=== PATIENT | male | born 1940 | race Caucasian/White ===

== ENCOUNTER 2017-11-09 16:52 | Inpatient (IN) | payer OTHER, MEDICAID ==
[~2017-11-09] VITALS: Ht 180.3 cm; Wt 68.1 kg
[2017-11-09] MEDS ORDERED: ALPRAZolam 0.5 MG TAB PO PRN (17:45)
[2017-11-09] MEDS ORDERED: NITROGLYCERIN 0.4 MG SL TAB SL PRN (17:45)
[2017-11-09] MEDS ORDERED: MORPHINE SULF INJ 2 MG/ML SYRINGE 1ML IV PRN (17:45)
[2017-11-09] MEDS ORDERED: IPRATROPIUM BROM 0.5 MG/2.5ML INH SOL NEB PRN (17:45)
[2017-11-09 18:25] VITALS: BP 122/62
[2017-11-09 20:00] VITALS: BP 128/78
[2017-11-09 21:17] VITALS: BP 122/62
[2017-11-09 22:00] VITALS: BP 128/78
[2017-11-09] MEDS: GABAPENTIN 300 MG CAP PO SCH (22:15)
[2017-11-09] MEDS: PANTOPRAZOLE 40 MG TAB PO SCH (22:15)
[2017-11-09] MEDS: METOPROLOL TARTRATE 25 MG TAB PO SCH (22:15)
[2017-11-10 05:00] VITALS: BP 121/64
[2017-11-10] MEDS: METOPROLOL TARTRATE 25 MG TAB PO SCH ×4 (06:00→22:00)
[2017-11-10] MEDS: GABAPENTIN 300 MG CAP PO SCH ×4 (06:00→22:58)
[2017-11-10 06:30] LABS: Basophils # (auto) 0.1 uL; Eosinophils # (auto) 0.1 uL; Hemoglobin 10.1 g/dL (13.5-17.5); Lymphocytes # (auto) 1.2 uL
[2017-11-10 06:33] LABS: Basophils % (auto) 0.9 % (0.0-2.0); Eosinophils % (auto) 0.9 % (0.0-7.0); Lymphocytes % (auto) 13.5 % (10.0-50.0); Mean Corpuscular Hemoglobin 26.4 pg (28.0-32.0); Mean Corpuscular Hgb Conc. 31.7 g/dL (32.0-36.0); Mean Corpuscular Volume 83.3 fL (80.0-100.0); Monocytes # (auto) 0.8 uL; Neutrophils # (auto) 6.4 uL; Neutrophils % (auto) 74.7 % (37.0-80.0); Nucleated Red Blood Cells % 0.2 %; Platelet Count (auto) 156 10^3/uL (140-450); Red Blood Cells 3.84 10^6/uL (4.5-5.90); Red Cell Distribution Width 23.5 % (11.8-14.3); White Blood Cell 8.5 10^3/uL (4.4-10.8)
[2017-11-10 06:50] LABS: INR 1.09 (0.9-1.15); Partial Thromboplastin Time 34.1 sec (22.64-33.71); Prothrombin Time 11.9 sec (9.37-12.3)
[2017-11-10 07:06] LABS: BUN/Creatinine Ratio 21.4; Calcium 8.6 mg/dL (8.5-10.1); Magnesium 2.1 mg/dL (1.6-2.6); Potassium 3.8 mmol/L (3.5-5.1)
[2017-11-10 07:30] VITALS: BP 121/64
[2017-11-10 09:00] VITALS: BP 124/74
[2017-11-10] MEDS: DIGOXIN 0.125 MG TAB PO SCH ×2 (09:52→15:26)
[2017-11-10] MEDS: FERROUS SULFATE 325 MG TAB PO SCH ×2 (09:52→15:26)
[2017-11-10] MEDS: FUROSEMIDE 20 MG TAB PO SCH ×2 (09:53→15:25)
[2017-11-10] MEDS: PANTOPRAZOLE 40 MG TAB PO SCH (09:53)
[2017-11-10 13:00] VITALS: BP 124/74
[2017-11-10] MEDS ORDERED: ACETAMINOPHEN 325 MG TAB PO PRN (14:15)
[2017-11-10 17:00] VITALS: BP 116/57
[2017-11-10 22:00] VITALS: BP 124/73
[2017-11-11] MEDS: METOPROLOL TARTRATE 25 MG TAB PO SCH ×4 (02:58→22:25)
[2017-11-11] MEDS: GABAPENTIN 300 MG CAP PO SCH ×3 (02:58→22:16)
[2017-11-11 05:00] VITALS: BP 126/65
[2017-11-11 06:39] VITALS: BP 130/61
[2017-11-11 08:00] VITALS: BP 130/61
[2017-11-11] MEDS: FERROUS SULFATE 325 MG TAB PO SCH (10:06)
[2017-11-11] MEDS: PANTOPRAZOLE 40 MG TAB PO SCH (10:07)
[2017-11-11] MEDS: DIGOXIN 0.125 MG TAB PO SCH (10:07)
[2017-11-11] MEDS: FUROSEMIDE 20 MG TAB PO SCH (10:07)
[2017-11-11 13:00] VITALS: BP 134/64
[2017-11-11 15:58] LABS: Basophils # (auto) 0.1 uL; Eosinophils # (auto) 0.1 uL; Mean Corpuscular Volume 83.8 fL (80.0-100.0); Monocytes # (auto) 0.5 uL; Nucleated Red Blood Cells % 0.1 %; Platelet Count (auto) 201 10^3/uL (140-450)
[2017-11-11 16:00] LABS: Eosinophils % (auto) 0.9 % (0.0-7.0); Hematocrit 32.1 % (41.0-53.0); Lymphocytes # (auto) 0.7 uL; Lymphocytes % (auto) 11.5 % (10.0-50.0); Mean Corpuscular Hemoglobin 26.2 pg (28.0-32.0); Mean Corpuscular Hgb Conc. 31.3 g/dL (32.0-36.0); Monocytes % (auto) 8.5 % (0.0-12.0); Neutrophils % (auto) 78.1 % (37.0-80.0); Red Blood Cells 3.83 10^6/uL (4.5-5.90); White Blood Cell 6.4 10^3/uL (4.4-10.8)
[2017-11-11 16:09] LABS: Red Cell Distribution Width 25.4 % (11.8-14.3)
[2017-11-11 16:15] LABS: BUN/Creatinine Ratio 14.1; Calcium 8.4 mg/dL (8.5-10.1); Magnesium 2.1 mg/dL (1.6-2.6); Potassium 3.5 mmol/L (3.5-5.1)
[2017-11-11 17:00] VITALS: BP 100/45
[2017-11-11] MEDS: HYDROcodone-ACET 7.5/325MG TAB PO PRN (22:41)
[2017-11-12] VITALS (8 sets, daily range): BP systolic 113–147; BP diastolic 48–74
[2017-11-12] MEDS: METOPROLOL TARTRATE 25 MG TAB PO SCH ×3 (05:53→22:15)
[2017-11-12] MEDS: HYDROcodone-ACET 7.5/325MG TAB PO PRN ×4 (05:53→20:56)
[2017-11-12] MEDS: GABAPENTIN 300 MG CAP PO SCH ×3 (05:53→22:15)
[2017-11-12 07:27] LABS: BUN/Creatinine Ratio 22.1; Calcium 8.4 mg/dL (8.5-10.1); Magnesium 2.3 mg/dL (1.6-2.6); Potassium 4.2 mmol/L (3.5-5.1)
[2017-11-12 07:50] LABS: Basophils # (auto) 0.1 uL; Eosinophils # (auto) 0.2 uL; Hemoglobin 10.1 g/dL (13.5-17.5); Monocytes # (auto) 0.7 uL; Nucleated Red Blood Cells % 0.1 %; White Blood Cell 8.3 10^3/uL (4.4-10.8)
[2017-11-12 07:52] LABS: Basophils % (auto) 0.8 % (0.0-2.0); Eosinophils % (auto) 2.3 % (0.0-7.0); Hematocrit 32.5 % (41.0-53.0); Lymphocytes # (auto) 1.2 uL; Lymphocytes % (auto) 14.4 % (10.0-50.0); Mean Corpuscular Hemoglobin 25.9 pg (28.0-32.0); Mean Corpuscular Volume 83.4 fL (80.0-100.0); Neutrophils # (auto) 6.1 uL; Neutrophils % (auto) 73.5 % (37.0-80.0); Platelet Count (auto) 152 10^3/uL (140-450); Red Cell Distribution Width 27.1 % (11.8-14.3)
[2017-11-12] MEDS: DIGOXIN 0.125 MG TAB PO SCH (08:07)
[2017-11-12] MEDS: FERROUS SULFATE 325 MG TAB PO SCH (08:07)
[2017-11-12] MEDS: PANTOPRAZOLE 40 MG TAB PO SCH (08:08)
[2017-11-12] MEDS: FUROSEMIDE 20 MG TAB PO SCH (08:08)
[2017-11-12] MEDS ORDERED: POLYETHYLENE GLYCOL 17 GM PWDR PO PRN (12:45)
[2017-11-12] MEDS: DOCUSATE SOD 100 MG CAP PO SCH ×2 (13:13→22:14)
[2017-11-12] MEDS ORDERED: ASPirin-EC 325mg tab PO SCH (14:45)
[2017-11-12] MEDS: ASPirin-EC 81 mg tab PO SCH (14:47)
[2017-11-12 15:04] LABS: Cholesterol 89 mg/dL (< 200); HDL Cholesterol 37 mg/dL (40-59); LDL Cholesterol 51 mg/dL (< 100); Triglycerides 47 mg/dL (< 150)
[2017-11-12] MEDS: PRO-STAT 64 30ML PO SCH (22:00)
[2017-11-12] MEDS ORDERED: TEMAZEPAM 15 MG CAP PO ONE (22:30)
[2017-11-13 05:11] VITALS: BP 137/65
[2017-11-13] MEDS: GABAPENTIN 300 MG CAP PO SCH ×3 (06:03→22:17)
[2017-11-13] MEDS: METOPROLOL TARTRATE 25 MG TAB PO SCH ×3 (06:03→22:21)
[2017-11-13 06:06] LABS: Basophils # (auto) 0.1 uL; Basophils % (auto) 2.2 % (0.0-2.0); Eosinophils # (auto) 0.2 uL; Eosinophils % (auto) 3.6 % (0.0-7.0); Lymphocytes # (auto) 1.1 uL; Mean Corpuscular Volume 85.4 fL (80.0-100.0); Monocytes # (auto) 0.6 uL; Monocytes % (auto) 9.2 % (0.0-12.0); Neutrophils # (auto) 4.5 uL; Nucleated Red Blood Cells % 0.1 %; Red Blood Cells 3.75 10^6/uL (4.5-5.90); White Blood Cell 6.6 10^3/uL (4.4-10.8)
[2017-11-13 06:09] LABS: Lymphocytes % (auto) 16.3 % (10.0-50.0); Mean Corpuscular Hemoglobin 26.7 pg (28.0-32.0); Mean Corpuscular Hgb Conc. 31.2 g/dL (32.0-36.0); Neutrophils % (auto) 68.7 % (37.0-80.0); Platelet Count (auto) 187 10^3/uL (140-450)
[2017-11-13 06:10] LABS: Red Cell Distribution Width 26.6 % (11.8-14.3)
[2017-11-13 06:34] LABS: BUN/Creatinine Ratio 24.4; Calcium 8.1 mg/dL (8.5-10.1); Potassium 4.1 mmol/L (3.5-5.1)
[2017-11-13 09:00] VITALS: BP 135/67
[2017-11-13] MEDS: DOCUSATE SOD 100 MG CAP PO SCH ×2 (10:54→22:17)
[2017-11-13] MEDS: FUROSEMIDE 20 MG TAB PO SCH (10:55)
[2017-11-13] MEDS: ASCORBIC ACID 500 MG TAB PO SCH (10:55)
[2017-11-13] MEDS: PANTOPRAZOLE 40 MG TAB PO SCH (10:55)
[2017-11-13] MEDS: FERROUS SULFATE 325 MG TAB PO SCH (10:55)
[2017-11-13] MEDS: ASPirin-EC 81 mg tab PO SCH (10:56)
[2017-11-13] MEDS: MULTIPLE VITAMINS W/ MINERALS TAB PO SCH (10:56)
[2017-11-13] MEDS: DIGOXIN 0.125 MG TAB PO SCH (10:56)
[2017-11-13] MEDS: PRO-STAT 64 30ML PO SCH ×2 (10:56→22:17)
[2017-11-13 12:31] VITALS: BP 128/60
[2017-11-13] MEDS: HYDROcodone-ACET 7.5/325MG TAB PO PRN ×2 (13:21→17:53)
[2017-11-13 17:00] VITALS: BP 121/47
[2017-11-13 22:00] VITALS: BP 132/50
[2017-11-14 05:00] VITALS: BP_SYST 107; BP_SYST 130; BP_DIAS 45; BP_DIAS 66
[2017-11-14] MEDS: GABAPENTIN 300 MG CAP PO SCH ×3 (05:39→21:45)
[2017-11-14] MEDS: METOPROLOL TARTRATE 25 MG TAB PO SCH ×3 (06:00→21:45)
[2017-11-14 07:06] LABS: Calcium 8.7 mg/dL (8.5-10.1)
[2017-11-14 07:08] LABS: BUN/Creatinine Ratio 22.8; Basophils # (auto) 0.1 uL; Eosinophils # (auto) 0.2 uL; Hemoglobin 9.8 g/dL (13.5-17.5)
[2017-11-14 07:11] LABS: INR 1.06 (0.9-1.15); Partial Thromboplastin Time 32.7 sec (22.64-33.71); Prothrombin Time 11.6 sec (9.37-12.3)
[2017-11-14 07:18] LABS: Eosinophils % (auto) 2.8 % (0.0-7.0); Hematocrit 31.3 % (41.0-53.0); Lymphocytes % (auto) 14.5 % (10.0-50.0); Mean Corpuscular Hemoglobin 26.8 pg (28.0-32.0); Mean Corpuscular Hgb Conc. 31.2 g/dL (32.0-36.0); Mean Corpuscular Volume 85.9 fL (80.0-100.0); Monocytes # (auto) 0.6 uL; Monocytes % (auto) 9.3 % (0.0-12.0); Neutrophils # (auto) 4.7 uL; Neutrophils % (auto) 71.4 % (37.0-80.0); Red Blood Cells 3.64 10^6/uL (4.5-5.90); White Blood Cell 6.6 10^3/uL (4.4-10.8)
[2017-11-14 07:29] LABS: Platelet Count (auto) 91 10^3/uL (140-450); Red Cell Distribution Width 26.7 % (11.8-14.3)
[2017-11-14 08:00] VITALS: BP 133/43
[2017-11-14 09:00] VITALS: BP 133/54
[2017-11-14] MEDS ORDERED: LIDOCAINE 2%HCL (LOCAL ANESTH.) INJ 20ML MDV ONE (09:27)
[2017-11-14] MEDS ORDERED: IODIXANOL 320MG/ML 100ML BTL IV ONE (09:27)
[2017-11-14] MEDS: MULTIPLE VITAMINS W/ MINERALS TAB PO SCH (10:00)
[2017-11-14] MEDS: DOCUSATE SOD 100 MG CAP PO SCH ×2 (10:00→21:44)
[2017-11-14] MEDS: DIGOXIN 0.125 MG TAB PO SCH (10:00)
[2017-11-14] MEDS: PRO-STAT 64 30ML PO SCH ×2 (10:00→21:45)
[2017-11-14] MEDS: FUROSEMIDE 20 MG TAB PO SCH (10:00)
[2017-11-14] MEDS: ASPirin-EC 81 mg tab PO SCH (10:00)
[2017-11-14] MEDS: FERROUS SULFATE 325 MG TAB PO SCH (10:00)
[2017-11-14] MEDS: ASCORBIC ACID 500 MG TAB PO SCH (10:00)
[2017-11-14] MEDS: PANTOPRAZOLE 40 MG TAB PO SCH (10:00)
[2017-11-14] MEDS ORDERED: MIDAZOLAM HCL 1MG/1ML-2 ML VIAL ONE (10:18)
[2017-11-14] MEDS ORDERED: fentaNYL CITRATE 100 MCG/2 ML VL ONE (10:18)
[2017-11-14] MEDS ORDERED: ANGIOMAX 250 MG VIAL IV ONE (10:18)
[2017-11-14] MEDS ORDERED: SODIUM CHL 0.9% 0 ML ONE (10:18)
[2017-11-14] MEDS ORDERED: VERAPAMIL 2.5MG/ML INJ 2ML VIAL IV ONE (10:24)
[2017-11-14] MEDS ORDERED: HEPARIN 1,000 UNITS/ml 1ML VIAL ONE (10:36)
[2017-11-14 16:41] VITALS: BP 130/59
[2017-11-15 04:39] VITALS: BP 136/59
[2017-11-15 05:56] LABS: Basophils # (auto) 0.1 uL; Basophils % (auto) 1.5 % (0.0-2.0); Eosinophils # (auto) 0.1 uL; Eosinophils % (auto) 1.9 % (0.0-7.0); Hematocrit 30.3 % (41.0-53.0); Hemoglobin 9.7 g/dL (13.5-17.5); Lymphocytes # (auto) 0.8 uL; Mean Corpuscular Volume 84.3 fL (80.0-100.0); Monocytes # (auto) 0.6 uL; Monocytes % (auto) 10.2 % (0.0-12.0); Neutrophils # (auto) 4.3 uL; Neutrophils % (auto) 72.4 % (37.0-80.0); Platelet Count (auto) 306 10^3/uL (140-450)
[2017-11-15] MEDS: METOPROLOL TARTRATE 25 MG TAB PO SCH ×3 (06:03→21:05)
[2017-11-15] MEDS: GABAPENTIN 300 MG CAP PO SCH ×3 (06:03→21:05)
[2017-11-15 06:09] LABS: Red Cell Distribution Width 26.8 % (11.8-14.3)
[2017-11-15 06:13] LABS: INR 1.1 (0.9-1.15); Partial Thromboplastin Time 33.1 sec (22.64-33.71)
[2017-11-15 06:14] LABS: BUN/Creatinine Ratio 30.3; Calcium 8.7 mg/dL (8.5-10.1); Magnesium 2.4 mg/dL (1.6-2.6); Potassium 4.5 mmol/L (3.5-5.1)
[2017-11-15 07:08] VITALS: BP 135/71
[2017-11-15] MEDS: DOCUSATE SOD 100 MG CAP PO SCH ×2 (10:00→21:01)
[2017-11-15] MEDS: FERROUS SULFATE 325 MG TAB PO SCH (10:28)
[2017-11-15] MEDS: ASPirin-EC 81 mg tab PO SCH (10:29)
[2017-11-15] MEDS: DIGOXIN 0.125 MG TAB PO SCH (10:30)
[2017-11-15] MEDS: FUROSEMIDE 20 MG TAB PO SCH (10:30)
[2017-11-15] MEDS: ASCORBIC ACID 500 MG TAB PO SCH (10:30)
[2017-11-15] MEDS: PANTOPRAZOLE 40 MG TAB PO SCH (10:30)
[2017-11-15] MEDS: MULTIPLE VITAMINS W/ MINERALS TAB PO SCH (10:30)
[2017-11-15] MEDS: PRO-STAT 64 30ML PO SCH ×2 (10:34→21:05)
[2017-11-15 13:00] VITALS: BP 131/75
[2017-11-15] MEDS ORDERED: VANCOMYCIN PER PHARMACY 0 MG IV SCH (14:15)
[2017-11-15 15:00] VITALS: BP 116/64
[2017-11-15] MEDS: PIPERACILLIN-TAZOB 3.375GM 50 ML IV SCH ×2 (16:17→20:45)
[2017-11-15] MEDS: HYDROcodone-ACET 7.5/325MG TAB PO PRN ×2 (16:21→20:45)
[2017-11-15] MEDS: VANCOMYCIN 1GM/250ML 250 ML IV SCH (18:25)
[2017-11-15] MEDS: HEPARIN SODIUM (PORCINE) 5000 UNITS/ML 1ML VIAL SC SCH (21:01)
[2017-11-15] MEDS: ALPRAZolam 0.5 MG TAB PO PRN (21:06)
[2017-11-15 22:00] VITALS: BP 133/66
[2017-11-16] MEDS: HYDROcodone-ACET 7.5/325MG TAB PO PRN ×3 (00:58→21:30)
[2017-11-16] MEDS: PIPERACILLIN-TAZOB 3.375GM 50 ML IV SCH ×4 (02:20→21:29)
[2017-11-16] MEDS: VANCOMYCIN 1GM/250ML 250 ML IV SCH ×2 (04:32→16:33)
[2017-11-16 05:52] VITALS: BP 138/60
[2017-11-16 06:22] LABS: Basophils # (auto) 0.1 uL; Eosinophils # (auto) 0.2 uL; Hemoglobin 9.9 g/dL (13.5-17.5); Mean Corpuscular Volume 85.8 fL (80.0-100.0); Monocytes # (auto) 0.6 uL; Neutrophils # (auto) 3.5 uL; White Blood Cell 5.4 10^3/uL (4.4-10.8)
[2017-11-16 06:25] LABS: Basophils % (auto) 2.2 % (0.0-2.0); Eosinophils % (auto) 3.4 % (0.0-7.0); Hematocrit 31.4 % (41.0-53.0); Lymphocytes % (auto) 18.9 % (10.0-50.0); Mean Corpuscular Hgb Conc. 31.5 g/dL (32.0-36.0); Monocytes % (auto) 10.7 % (0.0-12.0); Neutrophils % (auto) 64.8 % (37.0-80.0); Platelet Count (auto) 224 10^3/uL (140-450); Red Blood Cells 3.66 10^6/uL (4.5-5.90)
[2017-11-16 06:32] LABS: BUN/Creatinine Ratio 29.5; Calcium 8.2 mg/dL (8.5-10.1); Magnesium 2.5 mg/dL (1.6-2.6); Potassium 4.5 mmol/L (3.5-5.1)
[2017-11-16] MEDS: METOPROLOL TARTRATE 25 MG TAB PO SCH ×3 (06:37→21:39)
[2017-11-16] MEDS: GABAPENTIN 300 MG CAP PO SCH ×3 (06:37→21:30)
[2017-11-16 06:45] LABS: Red Cell Distribution Width 27.6 % (11.8-14.3)
[2017-11-16 09:00] VITALS: BP 120/68
[2017-11-16] MEDS: DOCUSATE SOD 100 MG CAP PO SCH ×2 (09:43→21:29)
[2017-11-16] MEDS: PANTOPRAZOLE 40 MG TAB PO SCH (09:44)
[2017-11-16] MEDS: ASPirin-EC 81 mg tab PO SCH (09:44)
[2017-11-16] MEDS: ASCORBIC ACID 500 MG TAB PO SCH (09:44)
[2017-11-16] MEDS: DIGOXIN 0.125 MG TAB PO SCH (09:44)
[2017-11-16] MEDS: FERROUS SULFATE 325 MG TAB PO SCH (09:44)
[2017-11-16] MEDS: MULTIPLE VITAMINS W/ MINERALS TAB PO SCH (09:44)
[2017-11-16] MEDS: FUROSEMIDE 20 MG TAB PO SCH (09:44)
[2017-11-16] MEDS: PRO-STAT 64 30ML PO SCH ×2 (09:46→21:39)
[2017-11-16] MEDS: HEPARIN SODIUM (PORCINE) 5000 UNITS/ML 1ML VIAL SC SCH (09:46)
[2017-11-16 12:57] LABS: Basophils # (auto) 0.2 uL; Eosinophils # (auto) 0.2 uL; Hemoglobin 9.9 g/dL (13.5-17.5); Lymphocytes # (auto) 0.9 uL; Nucleated Red Blood Cells % 0.1 %
[2017-11-16 12:59] LABS: Basophils % (auto) 2.5 % (0.0-2.0); Eosinophils % (auto) 2.8 % (0.0-7.0); Hematocrit 31.7 % (41.0-53.0); Lymphocytes % (auto) 14.4 % (10.0-50.0); Mean Corpuscular Hemoglobin 26.6 pg (28.0-32.0); Mean Corpuscular Hgb Conc. 31.2 g/dL (32.0-36.0); Mean Corpuscular Volume 85.5 fL (80.0-100.0); Monocytes # (auto) 0.7 uL; Monocytes % (auto) 10.5 % (0.0-12.0); Neutrophils # (auto) 4.5 uL; Neutrophils % (auto) 69.8 % (37.0-80.0); Platelet Count (auto) 415 10^3/uL (140-450); Red Blood Cells 3.71 10^6/uL (4.5-5.90); White Blood Cell 6.4 10^3/uL (4.4-10.8)
[2017-11-16 13:00] VITALS: BP 114/49
[2017-11-16 13:17] LABS: Red Cell Distribution Width 27.7 % (11.8-14.3)
[2017-11-16 13:21] LABS: INR 1.06 (0.9-1.15); Partial Thromboplastin Time 34.3 sec (22.64-33.71); Prothrombin Time 11.6 sec (9.37-12.3)
[2017-11-16] MEDS ORDERED: HEPARIN SODIUM (PORCINE) 5000 UNITS/ML 1ML VIAL IV ONE (15:15)
[2017-11-16] MEDS: HEPARIN DRIP/D5W 100UNITS/ML 250 ML IV SCH (16:37)
[2017-11-16 17:00] VITALS: BP 110/56
[2017-11-16] MEDS: ATORVASTATIN 20 MG TAB PO SCH (21:30)
[2017-11-16 22:00] VITALS: BP 117/69
[2017-11-16 22:29] LABS: INR 1.07 (0.9-1.15); Partial Thromboplastin Time 39.5 sec (22.64-33.71); Prothrombin Time 11.7 sec (9.37-12.3)
[2017-11-16] MEDS: ZOLPIDEM TARTRATE 5 MG TAB PO PRN (23:18)
[2017-11-17] MEDS: PIPERACILLIN-TAZOB 3.375GM 50 ML IV SCH ×4 (02:32→21:28)
[2017-11-17 04:40] LABS: Eosinophils # (auto) 0.2 uL; Hemoglobin 9.4 g/dL (13.5-17.5); Monocytes # (auto) 0.6 uL
[2017-11-17 04:42] LABS: Basophils # (auto) 0.2 uL; Basophils % (auto) 3.8 % (0.0-2.0); Eosinophils % (auto) 3.4 % (0.0-7.0); Hematocrit 30.6 % (41.0-53.0); Lymphocytes % (auto) 18.4 % (10.0-50.0); Mean Corpuscular Hemoglobin 26.5 pg (28.0-32.0); Mean Corpuscular Hgb Conc. 30.6 g/dL (32.0-36.0); Mean Corpuscular Volume 86.7 fL (80.0-100.0); Monocytes % (auto) 12.4 % (0.0-12.0); Neutrophils # (auto) 3.2 uL; Platelet Count (auto) 299 10^3/uL (140-450); Red Blood Cells 3.53 10^6/uL (4.5-5.90); White Blood Cell 5.2 10^3/uL (4.4-10.8)
[2017-11-17 04:46] LABS: Red Cell Distribution Width 27.3 % (11.8-14.3)
[2017-11-17 04:55] LABS: INR 1.09 (0.9-1.15); Partial Thromboplastin Time 56.9 sec (22.64-33.71); Prothrombin Time 11.9 sec (9.37-12.3)
[2017-11-17 04:57] LABS: Albumin 2.2 g/dL (3.4-5.0); BUN/Creatinine Ratio 24.4; Calcium 8.5 mg/dL (8.5-10.1); Potassium 4.5 mmol/L (3.5-5.1)
[2017-11-17 05:00] VITALS: BP 131/57
[2017-11-17 05:00] LABS: Bilirubin, Total 0.7 mg/dL (0.2-1.0); Total Protein 6.3 g/dL (6.4-8.2)
[2017-11-17] MEDS: VANCOMYCIN 1GM/250ML 250 ML IV SCH (05:06)
[2017-11-17] MEDS: METOPROLOL TARTRATE 25 MG TAB PO SCH ×3 (06:39→21:29)
[2017-11-17] MEDS: GABAPENTIN 300 MG CAP PO SCH ×3 (06:40→21:28)
[2017-11-17 07:56] VITALS: BP 142/63
[2017-11-17 11:15] LABS: INR 1.06 (0.9-1.15); Partial Thromboplastin Time 36.6 sec (22.64-33.71); Prothrombin Time 11.6 sec (9.37-12.3)
[2017-11-17] MEDS: DOCUSATE SOD 100 MG CAP PO SCH ×2 (12:56→21:28)
[2017-11-17] MEDS: ASPirin-EC 81 mg tab PO SCH (12:56)
[2017-11-17] MEDS: FERROUS SULFATE 325 MG TAB PO SCH (12:56)
[2017-11-17] MEDS: DIGOXIN 0.125 MG TAB PO SCH (12:56)
[2017-11-17] MEDS: FUROSEMIDE 20 MG TAB PO SCH (12:57)
[2017-11-17] MEDS: MULTIPLE VITAMINS W/ MINERALS TAB PO SCH (12:57)
[2017-11-17] MEDS: PRO-STAT 64 30ML PO SCH ×2 (12:57→22:44)
[2017-11-17] MEDS: PANTOPRAZOLE 40 MG TAB PO SCH (12:57)
[2017-11-17] MEDS: ASCORBIC ACID 500 MG TAB PO SCH (12:57)
[2017-11-17 14:07] VITALS: BP 135/60
[2017-11-17] MEDS: HEPARIN DRIP/D5W 100UNITS/ML 250 ML IV SCH (15:01)
[2017-11-17 15:42] LABS: INR 1.1 (0.9-1.15); Partial Thromboplastin Time 42.1 sec (22.64-33.71)
[2017-11-17 17:28] VITALS: BP 114/48
[2017-11-17] MEDS: ATORVASTATIN 20 MG TAB PO SCH (21:29)
[2017-11-17 22:00] VITALS: BP 108/56
[2017-11-17] MEDS: ZOLPIDEM TARTRATE 5 MG TAB PO PRN (22:00)
[2017-11-17 22:45] VITALS: BP 105/50
[2017-11-17] MEDS ORDERED: VANCOMYCIN 1GM/250ML 250 ML IV SCH (23:00)
[2017-11-18] MEDS: PIPERACILLIN-TAZOB 3.375GM 50 ML IV SCH ×4 (03:15→21:24)
[2017-11-18 05:00] VITALS: BP 146/70
[2017-11-18] MEDS: GABAPENTIN 300 MG CAP PO SCH ×3 (05:21→21:54)
[2017-11-18] MEDS: METOPROLOL TARTRATE 25 MG TAB PO SCH ×4 (05:34→21:54)
[2017-11-18 07:28] LABS: Albumin 2.1 g/dL (3.4-5.0); BUN/Creatinine Ratio 20.5; Bilirubin, Total 0.7 mg/dL (0.2-1.0); Calcium 8.2 mg/dL (8.5-10.1); Potassium 4.2 mmol/L (3.5-5.1); Total Protein 6.4 g/dL (6.4-8.2)
[2017-11-18] MEDS ORDERED: PAPAVERINE HCL 60 MG/2 ML 2ML VIAL ONE (07:35)
[2017-11-18] MEDS ORDERED: POVIDONE IODINE 10 % TOPICAL OINT 30GM TOP ONE (07:35)
[2017-11-18] MEDS ORDERED: ceFAZolin 1GM VL ONE ×2 (07:35→11:43)
[2017-11-18] MEDS ORDERED: GELATIN 1 SPONGE SIZE 100 TOP ONE (07:35)
[2017-11-18] MEDS ORDERED: HEPARIN 1,000 UNITS/ml 1ML VIAL ONE (07:35)
[2017-11-18] MEDS ORDERED: HEPARIN SODIUM (PORCINE) 5000 UNITS/ML 1ML VIAL ONE ×3 (07:35→11:35)
[2017-11-18] MEDS ORDERED: THROMBIN (BOVINE) 5000 UNIT SOL VIAL ONE ×2 (07:36→08:38)
[2017-11-18 08:00] VITALS: BP 143/73
[2017-11-18] MEDS ORDERED: fentaNYL CITRATE 5 ML ONE (08:56)
[2017-11-18] MEDS ORDERED: fentaNYL CITRATE 100 MCG/2 ML VL ONE ×2 (08:56→18:17)
[2017-11-18] MEDS ORDERED: MEPERIDINE HCL (50 MG/ML) 1 ML VIAL ONE (08:57)
[2017-11-18] MEDS ORDERED: DEXAMETHASONE SOD PHOS 10MG/1ML VIAL INJ ONE (09:01)
[2017-11-18] MEDS ORDERED: ETOMIDATE (2MG/ML) 20ML VIAL IV ONE (09:01)
[2017-11-18] MEDS: ASPirin-EC 81 mg tab PO SCH (10:00)
[2017-11-18] MEDS: ASCORBIC ACID 500 MG TAB PO SCH (10:00)
[2017-11-18] MEDS: MULTIPLE VITAMINS W/ MINERALS TAB PO SCH (10:00)
[2017-11-18] MEDS: DOCUSATE SOD 100 MG CAP PO SCH ×3 (10:00→22:00)
[2017-11-18] MEDS: DIGOXIN 0.125 MG TAB PO SCH (10:00)
[2017-11-18] MEDS: PRO-STAT 64 30ML PO SCH ×2 (10:00→22:00)
[2017-11-18] MEDS: PANTOPRAZOLE 40 MG TAB PO SCH (10:00)
[2017-11-18] MEDS: FUROSEMIDE 20 MG TAB PO SCH (10:00)
[2017-11-18] MEDS: FERROUS SULFATE 325 MG TAB PO SCH (10:00)
[2017-11-18] MEDS ORDERED: ceFAZolin 1GM/50ML 50 ML IV ONE (10:11)
[2017-11-18] MEDS ORDERED: MIDAZOLAM HCL 1MG/1ML-2 ML VIAL ONE ×3 (10:20→18:17)
[2017-11-18] MEDS ORDERED: MORPHINE SULFATE 4 MG/ML SYR/VIAL IV PRN (11:15)
[2017-11-18] MEDS ORDERED: KETOROLAC TROMETH 30 MG/ML 1ML VIAL IV ONE (11:15)
[2017-11-18] MEDS ORDERED: LABETALOL HCL 5 MG/ML 4ML SYRINGE IV PRN (11:15)
[2017-11-18] MEDS ORDERED: ePHEDrine SULFATE 50 MG/ML AMP IV PRN (11:15)
[2017-11-18] MEDS ORDERED: ONDANSETRON HCL 4 MG/2 ML VIAL IV ONE (11:15)
[2017-11-18] MEDS ORDERED: MIDAZOLAM HCL 1MG/1ML-2 ML VIAL IV PRN (11:15)
[2017-11-18] MEDS ORDERED: HYDROmorphone HCL 2 MG/ML VL IV PRN (11:15)
[2017-11-18] MEDS ORDERED: MORPHINE SULFATE 4 MG/ML SYR/VIAL IV ONE (12:00)
[2017-11-18] MEDS ORDERED: PROTAMINE SULFATE 10 MG/ML 5ML VIAL IV ONE (13:08)
[2017-11-18] MEDS ORDERED: HYDROcodone-ACET 5/325MG TAB PO PRN (15:30)
[2017-11-18] MEDS ORDERED: LIDOCAINE 2% JELLY 11ml (GLYDO) ONE (17:22)
[2017-11-18] MEDS ORDERED: PROPOFOL 10 MG/ML 20 ML IV ONE (18:22)
[2017-11-18 20:00] VITALS: BP 129/48
[2017-11-18 20:11] VITALS: BP 104/50
[2017-11-18] MEDS: VANCOMYCIN 1GM/250ML 250 ML IV SCH (21:54)
[2017-11-18] MEDS: ATORVASTATIN 20 MG TAB PO SCH (21:54)
[2017-11-18] MEDS: ZOLPIDEM TARTRATE 5 MG TAB PO PRN (23:13)
[2017-11-19] VITALS (7 sets, daily range): BP systolic 103–127; BP diastolic 51–71
[2017-11-19] MEDS: PIPERACILLIN-TAZOB 3.375GM 50 ML IV SCH ×4 (02:37→21:27)
[2017-11-19] MEDS: GABAPENTIN 300 MG CAP PO SCH ×3 (05:57→22:09)
[2017-11-19] MEDS: METOPROLOL TARTRATE 25 MG TAB PO SCH ×3 (05:58→22:10)
[2017-11-19 06:13] LABS: BUN/Creatinine Ratio 17.4; Bilirubin, Total 0.7 mg/dL (0.2-1.0); Calcium 8.1 mg/dL (8.5-10.1); Potassium 4.6 mmol/L (3.5-5.1); Total Protein 5.8 g/dL (6.4-8.2)
[2017-11-19] MEDS: DOCUSATE SOD 100 MG CAP PO SCH ×2 (10:00→22:00)
[2017-11-19] MEDS: DIGOXIN 0.125 MG TAB PO SCH (10:25)
[2017-11-19] MEDS: ASPirin-EC 81 mg tab PO SCH (10:25)
[2017-11-19] MEDS: FERROUS SULFATE 325 MG TAB PO SCH (10:25)
[2017-11-19] MEDS: MULTIPLE VITAMINS W/ MINERALS TAB PO SCH (10:26)
[2017-11-19] MEDS: PRO-STAT 64 30ML PO SCH ×2 (10:26→22:00)
[2017-11-19] MEDS: ASCORBIC ACID 500 MG TAB PO SCH (10:26)
[2017-11-19] MEDS: PANTOPRAZOLE 40 MG TAB PO SCH (10:26)
[2017-11-19] MEDS: FUROSEMIDE 20 MG TAB PO SCH (10:26)
[2017-11-19] MEDS: MORPHINE SULFATE 4 MG/ML SYR/VIAL IV PRN ×2 (12:28→22:10)
[2017-11-19] MEDS: VANCOMYCIN 1GM/250ML 250 ML IV SCH (17:44)
[2017-11-19] MEDS ORDERED: MORPHINE SULF INJ 2 MG/ML SYRINGE 1ML IV PRN (18:00)
[2017-11-19] MEDS ORDERED: NITROGLYCERIN 0.4 MG SL TAB SL PRN (18:00)
[2017-11-19] MEDS: ATORVASTATIN 20 MG TAB PO SCH (22:10)
[2017-11-20] MEDS: ALPRAZolam 0.5 MG TAB PO PRN (00:20)
[2017-11-20] MEDS: PIPERACILLIN-TAZOB 3.375GM 50 ML IV SCH ×4 (02:45→21:00)
[2017-11-20 03:55] VITALS: BP 126/62
[2017-11-20 05:48] LABS: Basophils # (auto) 0.1 uL; Basophils % (auto) 1.3 % (0.0-2.0); Eosinophils # (auto) 0.1 uL; Eosinophils % (auto) 0.8 % (0.0-7.0); Hematocrit 27.9 % (41.0-53.0); Hemoglobin 8.7 g/dL (13.5-17.5); Lymphocytes # (auto) 1.3 uL; Lymphocytes % (auto) 13.1 % (10.0-50.0); Mean Corpuscular Hemoglobin 27.3 pg (28.0-32.0); Mean Corpuscular Hgb Conc. 31.2 g/dL (32.0-36.0); Mean Corpuscular Volume 87.6 fL (80.0-100.0); Monocytes # (auto) 1.1 uL; Neutrophils # (auto) 7.3 uL; Neutrophils % (auto) 73.8 % (37.0-80.0); Platelet Count (auto) 345 10^3/uL (140-450); Red Blood Cells 3.18 10^6/uL (4.5-5.90); White Blood Cell 9.8 10^3/uL (4.4-10.8)
[2017-11-20 05:54] LABS: BUN/Creatinine Ratio 22.1; Calcium 8.3 mg/dL (8.5-10.1); Magnesium 2.4 mg/dL (1.6-2.6); Potassium 4.9 mmol/L (3.5-5.1)
[2017-11-20 06:03] LABS: Red Cell Distribution Width 27.9 % (11.8-14.3)
[2017-11-20] MEDS: GABAPENTIN 300 MG CAP PO SCH ×3 (06:15→21:59)
[2017-11-20] MEDS: METOPROLOL TARTRATE 25 MG TAB PO SCH ×3 (06:17→21:59)
[2017-11-20] MEDS: MULTIPLE VITAMINS W/ MINERALS TAB PO SCH (09:55)
[2017-11-20] MEDS: PANTOPRAZOLE 40 MG TAB PO SCH (09:55)
[2017-11-20] MEDS: DIGOXIN 0.125 MG TAB PO SCH (09:55)
[2017-11-20] MEDS: FERROUS SULFATE 325 MG TAB PO SCH (09:56)
[2017-11-20] MEDS: ASPirin-EC 81 mg tab PO SCH (09:56)
[2017-11-20] MEDS: PRO-STAT 64 30ML PO SCH ×2 (09:56→22:00)
[2017-11-20] MEDS: FUROSEMIDE 20 MG TAB PO SCH (09:56)
[2017-11-20] MEDS: ASCORBIC ACID 500 MG TAB PO SCH (09:56)
[2017-11-20] MEDS: DOCUSATE SOD 100 MG CAP PO SCH ×2 (09:56→21:58)
[2017-11-20 11:56] VITALS: BP 126/66
[2017-11-20] MEDS: VANCOMYCIN 1GM/250ML 250 ML IV SCH (13:25)
[2017-11-20 15:59] VITALS: BP 109/60
[2017-11-20] MEDS: TAMSULOSIN HYDROCHLORIDE 0.4 MG CAP PO SCH (17:01)
[2017-11-20] MEDS: FINASTERIDE 5 MG TAB PO SCH (17:01)
[2017-11-20] MEDS: ALBUTEROL SULF 2.5 MG/0.5ML(0.5%) NEB SOLN NEB SCH (19:12)
[2017-11-20] MEDS: IPRATROPIUM BROM 0.5 MG/2.5ML INH SOL NEB SCH (19:12)
[2017-11-20 20:00] VITALS: BP 111/51
[2017-11-20] MEDS: ATORVASTATIN 20 MG TAB PO SCH (21:58)
[2017-11-21] MEDS: ALBUTEROL SULF 2.5 MG/0.5ML(0.5%) NEB SOLN NEB SCH ×4 (00:18→19:13)
[2017-11-21] MEDS: IPRATROPIUM BROM 0.5 MG/2.5ML INH SOL NEB SCH ×4 (00:18→19:13)
[2017-11-21 02:00] VITALS: BP 111/51
[2017-11-21] MEDS: PIPERACILLIN-TAZOB 3.375GM 50 ML IV SCH ×4 (03:00→22:43)
[2017-11-21 04:00] VITALS: BP_DIAS 72
[2017-11-21] MEDS: VANCOMYCIN 1GM/250ML 250 ML IV SCH (06:10)
[2017-11-21] MEDS: METOPROLOL TARTRATE 25 MG TAB PO SCH ×3 (06:10→22:44)
[2017-11-21] MEDS: GABAPENTIN 300 MG CAP PO SCH ×3 (06:11→22:44)
[2017-11-21 08:00] VITALS: BP 129/72
[2017-11-21] MEDS: PANTOPRAZOLE 40 MG TAB PO SCH (10:06)
[2017-11-21] MEDS: FUROSEMIDE 20 MG TAB PO SCH (10:07)
[2017-11-21] MEDS: FINASTERIDE 5 MG TAB PO SCH (10:07)
[2017-11-21] MEDS: FERROUS SULFATE 325 MG TAB PO SCH (10:07)
[2017-11-21] MEDS: MULTIPLE VITAMINS W/ MINERALS TAB PO SCH (10:07)
[2017-11-21] MEDS: ASCORBIC ACID 500 MG TAB PO SCH (10:07)
[2017-11-21] MEDS: ASPirin-EC 81 mg tab PO SCH (10:08)
[2017-11-21] MEDS: DOCUSATE SOD 100 MG CAP PO SCH ×2 (10:08→22:43)
[2017-11-21] MEDS: DIGOXIN 0.125 MG TAB PO SCH (10:08)
[2017-11-21] MEDS: PRO-STAT 64 30ML PO SCH ×2 (10:09→22:00)
[2017-11-21 11:55] VITALS: BP 148/65
[2017-11-21 12:42] LABS: BUN/Creatinine Ratio 18.1; Calcium 8.5 mg/dL (8.5-10.1)
[2017-11-21 13:28] LABS: INR 1.09 (0.9-1.15); Partial Thromboplastin Time 32.9 sec (22.64-33.71); Prothrombin Time 11.9 sec (9.37-12.3)
[2017-11-21] MEDS ORDERED: LIDOCAINE 1% HCL (LOCAL ANESTH.) INJ 20ML MDV ONE (14:45)
[2017-11-21 15:58] VITALS: BP 138/70
[2017-11-21] MEDS: TAMSULOSIN HYDROCHLORIDE 0.4 MG CAP PO SCH (18:22)
[2017-11-21 20:00] VITALS: BP 129/59
[2017-11-21] MEDS: ATORVASTATIN 20 MG TAB PO SCH (22:43)
[2017-11-22] VITALS (10 sets, daily range): BP systolic 115–152; BP diastolic 52–75
[2017-11-22] MEDS: IPRATROPIUM BROM 0.5 MG/2.5ML INH SOL NEB SCH ×4 (00:37→18:00)
[2017-11-22] MEDS: ALBUTEROL SULF 2.5 MG/0.5ML(0.5%) NEB SOLN NEB SCH ×4 (00:37→18:00)
[2017-11-22] MEDS: VANCOMYCIN 1GM/250ML 250 ML IV SCH ×2 (00:57→18:00)
[2017-11-22] MEDS: PIPERACILLIN-TAZOB 3.375GM 50 ML IV SCH ×3 (03:20→15:00)
[2017-11-22] MEDS: GABAPENTIN 300 MG CAP PO SCH ×2 (05:38→15:50)
[2017-11-22] MEDS: METOPROLOL TARTRATE 25 MG TAB PO SCH ×2 (05:38→15:49)
[2017-11-22 06:16] LABS: Basophils # (auto) 0.2 uL; Basophils % (auto) 2.1 % (0.0-2.0); Eosinophils # (auto) 0.2 uL; Eosinophils % (auto) 1.8 % (0.0-7.0); Lymphocytes % (auto) 12.3 % (10.0-50.0); Mean Corpuscular Hemoglobin 27.7 pg (28.0-32.0); Mean Corpuscular Hgb Conc. 32.1 g/dL (32.0-36.0); Mean Corpuscular Volume 86.5 fL (80.0-100.0); Monocytes # (auto) 0.6 uL; Monocytes % (auto) 7.4 % (0.0-12.0); Neutrophils # (auto) 6.4 uL; Neutrophils % (auto) 76.4 % (37.0-80.0); Platelet Count (auto) 340 10^3/uL (140-450); White Blood Cell 8.4 10^3/uL (4.4-10.8)
[2017-11-22 06:23] LABS: Red Cell Distribution Width 28.1 % (11.8-14.3)
[2017-11-22 06:40] LABS: Albumin 1.9 g/dL (3.4-5.0); BUN/Creatinine Ratio 21.1; Bilirubin, Total 0.7 mg/dL (0.2-1.0); Calcium 8.2 mg/dL (8.5-10.1); Magnesium 2.3 mg/dL (1.6-2.6); Potassium 3.9 mmol/L (3.5-5.1); Total Protein 5.7 g/dL (6.4-8.2)
[2017-11-22] MEDS: PRO-STAT 64 30ML PO SCH (10:00)
[2017-11-22] MEDS ORDERED: LEVOFLOXACIN 500 MG TAB PO ONE (11:00)
[2017-11-22] MEDS: DOCUSATE SOD 100 MG CAP PO SCH (11:14)
[2017-11-22] MEDS: FERROUS SULFATE 325 MG TAB PO SCH (11:14)
[2017-11-22] MEDS: ASPirin-EC 81 mg tab PO SCH (11:15)
[2017-11-22] MEDS: DIGOXIN 0.125 MG TAB PO SCH (11:16)
[2017-11-22] MEDS: FUROSEMIDE 20 MG TAB PO SCH (11:16)
[2017-11-22] MEDS: PANTOPRAZOLE 40 MG TAB PO SCH (11:17)
[2017-11-22] MEDS: MULTIPLE VITAMINS W/ MINERALS TAB PO SCH (11:17)
[2017-11-22] MEDS: FINASTERIDE 5 MG TAB PO SCH (11:17)
[2017-11-22] MEDS: ASCORBIC ACID 500 MG TAB PO SCH (11:18)
[2017-11-22] MEDS: TAMSULOSIN HYDROCHLORIDE 0.4 MG CAP PO SCH (18:00)
== END 2017-11-22 19:00 | DRG 252 ==
LOC: TELE-WESTW 16:52 → DOU IN ICU 11-18 19:31 → TELE-WESTW 11-21 18:46
PROVIDERS: ADMIT Internal Medicine; ATTEND Internal Medicine
PROC: 4A023N7 Measurement of Cardiac Sampling and Pressure, Left Heart, Percutaneous Approach (ICD-10-PCS; principal; 2017-11-14)
PROC: B2111ZZ Fluoroscopy of Multiple Coronary Arteries using Low Osmolar Contrast (ICD-10-PCS; 2017-11-14)
PROC: 041L0JL Bypass Left Femoral Artery to Popliteal Artery with Synthetic Substitute, Open Approach (ICD-10-PCS; 2017-11-18)
PROC: 04CL0ZZ Extirpation of Matter from Left Femoral Artery, Open Approach (ICD-10-PCS; 2017-11-18)
PROC: 04UL0JZ Supplement Left Femoral Artery with Synthetic Substitute, Open Approach (ICD-10-PCS; 2017-11-18)
PROC: 0W9B3ZZ Drainage of Left Pleural Cavity, Percutaneous Approach (ICD-10-PCS; 2017-11-21)
PROC: 30233N1 Transfusion of Nonautologous Red Blood Cells into Peripheral Vein, Percutaneous Approach (ICD-10-PCS; 2017-11-22)
DX: I74.3 Embolism and thrombosis of arteries of the lower extremities (principal); J96.20 Acute and chronic respiratory failure, unspecified whether with hypoxia or hypercapnia; I50.33 Acute on chronic diastolic (congestive) heart failure; J90 Pleural effusion, not elsewhere classified; K92.2 Gastrointestinal hemorrhage, unspecified; I70.92 Chronic total occlusion of artery of the extremities; N36.5 Urethral false passage; S81.802A Unspecified open wound, left lower leg, initial encounter; N32.0 Bladder-neck obstruction; J44.9 Chronic obstructive pulmonary disease, unspecified; I48.0 Paroxysmal atrial fibrillation; I11.0 Hypertensive heart disease with heart failure; D50.0 Iron deficiency anemia secondary to blood loss (chronic); F03.90 Unspecified dementia, unspecified severity, without behavioral disturbance, psychotic disturbance, mood disturbance, and anxiety; F41.9 Anxiety disorder, unspecified; I25.10 Atherosclerotic heart disease of native coronary artery without angina pectoris; I48.2 Chronic atrial fibrillation; K59.00 Constipation, unspecified; Z82.49 Family history of ischemic heart disease and other diseases of the circulatory system; Z82.5 Family history of asthma and other chronic lower respiratory diseases; R31.9 Hematuria, unspecified; X58.XXXA Exposure to other specified factors, initial encounter; Y93.89 Activity, other specified; Y92.89 Other specified places as the place of occurrence of the external cause; Y99.8 Other external cause status
CPT/HCPCS: 32555; 36415; 71045; 76870; 76942; 80048; 80053; 80061; 80202; 83735; 84100; 85025; 85610; 85730; 86850; 86900; 86901; 86920; 87081; 87205; 93005; 93458; 94640; 97163; 99152; J0690; J1100; J2001; J2250; J2440; J2543; J2704; Q9967

== ENCOUNTER 2017-11-24 00:42 | Inpatient (IN) | payer OTHER, MEDICAID ==
[~2017-11-24] VITALS: Ht 180.3 cm; Wt 73.9 kg
[2017-11-24 02:22] LABS: Basophils # (auto) 0.2 uL; Basophils % (auto) 2.3 % (0.0-2.0); Eosinophils # (auto) 0.2 uL; Hematocrit 30.5 % (41.0-53.0); Hemoglobin 9.8 g/dL (13.5-17.5); Lymphocytes # (auto) 0.7 uL; Mean Corpuscular Hemoglobin 28.3 pg (28.0-32.0); Mean Corpuscular Hgb Conc. 32.2 g/dL (32.0-36.0); Monocytes # (auto) 0.6 uL; Monocytes % (auto) 7.6 % (0.0-12.0); Neutrophils # (auto) 6.4 uL; Neutrophils % (auto) 79.1 % (37.0-80.0); Nucleated Red Blood Cells % 0.2 %; Platelet Count (auto) 236 10^3/uL (140-450); Red Blood Cells 3.47 10^6/uL (4.5-5.90); White Blood Cell 8.1 10^3/uL (4.4-10.8)
[2017-11-24 02:45] LABS: INR 1.09 (0.9-1.15); Prothrombin Time 11.9 sec (9.37-12.3); Red Cell Distribution Width 26.1 % (11.8-14.3)
[2017-11-24 02:52] LABS: Albumin 2.2 g/dL (3.4-5.0); BUN/Creatinine Ratio 25.8; Calcium 8.8 mg/dL (8.5-10.1); Magnesium 2.1 mg/dL (1.6-2.6); Potassium 4.4 mmol/L (3.5-5.1)
[2017-11-24 02:57] LABS: Bilirubin, Total 0.8 mg/dL (0.2-1.0); Total Protein 6.4 g/dL (6.4-8.2)
[2017-11-24] MEDS ORDERED: FUROSEMIDE 20 MG/2 ML VIAL IV ONE (03:15)
[2017-11-24] MEDS ORDERED: DOCUSATE SOD 100 MG CAP PO PRN (06:45)
[2017-11-24] MEDS ORDERED: ONDANSETRON HCL 4 MG/2 ML VIAL IV PRN (06:45)
[2017-11-24] MEDS ORDERED: TEMAZEPAM 15 MG CAP PO PRN (06:45)
[2017-11-24] MEDS ORDERED: HYDROcodone-ACET 5/325MG TAB PO PRN (06:45)
[2017-11-24] MEDS ORDERED: MORPHINE SULFATE 4 MG/ML SYR/VIAL IV PRN (06:45)
[2017-11-24] MEDS ORDERED: ACETAMINOPHEN 325 MG TAB PO PRN (06:45)
[2017-11-24] MEDS ORDERED: ALBUTEROL SULF 2.5 MG/0.5ML(0.5%) NEB SOLN NEB PRN (06:45)
[2017-11-24] MEDS ORDERED: NITROGLYCERIN 0.4 MG SL TAB SL PRN (06:45)
[2017-11-24 06:59] VITALS: BP 153/72
[2017-11-24] MEDS ORDERED: HYDR-4795 PO (08:53)
[2017-11-24] MEDS ORDERED: PANT40TA2 PO (08:53)
[2017-11-24] MEDS ORDERED: BUME1TAB28 PO (08:53)
[2017-11-24] MEDS ORDERED: DIGO1TAB35 PO (08:53)
[2017-11-24] MEDS ORDERED: METO-5 PO (08:53)
[2017-11-24] MEDS ORDERED: ALBUAER3 IN (08:53)
[2017-11-24] MEDS ORDERED: NITR0.4S29 SL (08:53)
[2017-11-24] MEDS ORDERED: RIV20T PO (08:53)
[2017-11-24] MEDS ORDERED: BUDE0.5S IN (08:53)
[2017-11-24] MEDS ORDERED: POTA20TA53 PO (08:53)
[2017-11-24] MEDS ORDERED: FURO40TA PO (08:53)
[2017-11-24] MEDS ORDERED: TRAM50TA2 PO (08:53)
[2017-11-24] MEDS ORDERED: DIGOXIN 0.125 MG TAB PO SCH (10:00)
[2017-11-24] MEDS: APIXABAN 5 MG TAB PO SCH ×2 (11:09→21:57)
[2017-11-24] MEDS: cefTRIAXone 1GM/10ml IVPUSH 10 ML IV SCH (11:09)
[2017-11-24] MEDS: METOPROLOL TARTRATE 50 MG TAB PO SCH ×2 (11:11→21:57)
[2017-11-24] MEDS: PANTOPRAZOLE 40 MG TAB PO SCH (11:11)
[2017-11-24] MEDS ORDERED: AMIODARONE HCL 200 MG TAB PO ONE (13:45)
[2017-11-24 16:56] VITALS: BP 138/55
[2017-11-24] MEDS: FUROSEMIDE 40 MG/4 ML VIAL IV SCH (17:32)
[2017-11-24] MEDS ORDERED: FUROSEMIDE 40 MG TAB PO SCH (18:00)
[2017-11-24] MEDS: AMIODARONE HCL 200 MG TAB PO SCH (21:57)
[2017-11-24] MEDS: POTASSIUM CHL 10 Meq TABLET PO SCH (21:57)
[2017-11-24 22:03] VITALS: BP 113/83
[2017-11-25 05:23] VITALS: BP 117/75
[2017-11-25] MEDS: FUROSEMIDE 40 MG/4 ML VIAL IV SCH (06:08)
[2017-11-25 06:19] LABS: Basophils # (auto) 0.2 uL; Basophils % (auto) 2.7 % (0.0-2.0); Eosinophils # (auto) 0.2 uL; Eosinophils % (auto) 2.4 % (0.0-7.0); Hematocrit 27.7 % (41.0-53.0); Hemoglobin 8.9 g/dL (13.5-17.5); Lymphocytes # (auto) 1.2 uL; Lymphocytes % (auto) 17.6 % (10.0-50.0); Mean Corpuscular Hemoglobin 28.3 pg (28.0-32.0); Mean Corpuscular Volume 88.5 fL (80.0-100.0); Monocytes # (auto) 0.7 uL; Monocytes % (auto) 10.6 % (0.0-12.0); Neutrophils # (auto) 4.6 uL; Neutrophils % (auto) 66.7 % (37.0-80.0); Nucleated Red Blood Cells % 0.1 %; Platelet Count (auto) 371 10^3/uL (140-450); Red Blood Cells 3.13 10^6/uL (4.5-5.90); White Blood Cell 6.9 10^3/uL (4.4-10.8)
[2017-11-25 06:55] LABS: Potassium 4.1 mmol/L (3.5-5.1)
[2017-11-25 07:02] LABS: BUN/Creatinine Ratio 29.7; Bilirubin, Total 0.7 mg/dL (0.2-1.0); Calcium 8.4 mg/dL (8.5-10.1)
[2017-11-25 07:12] LABS: Red Cell Distribution Width 26.3 % (11.8-14.3)
[2017-11-25 08:41] VITALS: BP 125/60
[2017-11-25] MEDS: cefTRIAXone 1GM/10ml IVPUSH 10 ML IV SCH (09:55)
[2017-11-25] MEDS: POTASSIUM CHL 10 Meq TABLET PO SCH (09:56)
[2017-11-25] MEDS: AMIODARONE HCL 200 MG TAB PO SCH (09:56)
[2017-11-25] MEDS: APIXABAN 5 MG TAB PO SCH (09:56)
[2017-11-25] MEDS: METOPROLOL TARTRATE 50 MG TAB PO SCH (09:57)
[2017-11-25] MEDS: PANTOPRAZOLE 40 MG TAB PO SCH (09:58)
[2017-11-25 13:01] VITALS: BP 109/55
[2017-11-25] MEDS ORDERED: HYDROcodone-ACET 5/325MG TAB PO PRN (13:45)
[2017-11-25] MEDS ORDERED: TEMAZEPAM 15 MG CAP PO PRN (13:45)
[2017-11-25 16:46] VITALS: BP 102/41
[2017-11-25 17:42] VITALS: BP 102/41
[2017-11-25] MEDS ORDERED: AMIODARONE HCL 200 MG TAB PO SCH (22:00)
== END 2017-11-25 19:29 | DRG 291 ==
LOC: EDBD 00:42 → ER 01:16 → TELE 01:17 → TELE-WESTW 09:07
PROVIDERS: ADMIT Nurse Practitioner; ATTEND Hospitalist
DX: I50.33 Acute on chronic diastolic (congestive) heart failure (principal); E43 Unspecified severe protein-calorie malnutrition; J80 Acute respiratory distress syndrome; I48.2 Chronic atrial fibrillation; J44.9 Chronic obstructive pulmonary disease, unspecified; I73.9 Peripheral vascular disease, unspecified; I25.10 Atherosclerotic heart disease of native coronary artery without angina pectoris; G47.00 Insomnia, unspecified; K59.00 Constipation, unspecified; Z82.49 Family history of ischemic heart disease and other diseases of the circulatory system; Z98.61 Coronary angioplasty status
CPT/HCPCS: 36415; 71045; 80053; 83735; 83880; 84484; 85025; 85379; 85610; 85730; 87081; 93005; 96374; 97116; 97530